=== PATIENT | female | born 1995 | race Caucasian/White ===

== ENCOUNTER → 2017-01-28 | Outpatient (REF) | LOC: WSOH 15:15 | DX: Z02.89 Encounter for other administrative examinations (principal) ==

== ENCOUNTER 2021-04-02 09:39 | Emergency (ER) | payer OTHER ==
[~2021-04-02] VITALS: Ht 165.1 cm; Wt 72.7 kg
[2021-04-02 09:56] VITALS: TEMP 98.8
[2021-04-02 10:32] LABS: BASO % 0.6 % (0.0-2.0); EOS % 0.4 % (0-4.0); GRAN % 56.3 % (42.2-75.2); HEMATOCRIT 38.1 % (37.0-47.0); HEMOGLOBIN 11.6 g/dl (12.5-16.0); LYMPH # 1.8 (1.2-3.4); LYMPH % 34.9 % (20.0-51.0); MEAN CELL VOLUME 76 fl (80.0-100.0); MEAN CORPUSCULAR HEMOGLOBIN 23 pg (27.0-31.0); MEAN CORPUSCULAR HGB CONC 30 g/dl (33.0-37.0); MEAN PLATELET VOLUME 10.5 fl (7.4-10.4); MONO # 0.4 (0.1-0.6); MONO % 7.6 % (1.7-9.3); PLATELET COUNT 269 K/mm3 (130-400); RED BLOOD COUNT 5.02 M/mm3 (4.10-5.30); REDCELL DISTRIBUTION WIDTH-CV 16.2 % (11.5-14.5)
[2021-04-02 10:35] LABS: ALANINE AMINOTRANSFERASE 15 U/L (4-34); ALBUMIN 4.6 gm/dL (3.5-5.0); ALKALINE PHOSPHATASE 87 U/L (50-136); ANION GAP 9 mmol/L (7-16); AST,SGOT 23 U/L (15-37); BILIRUBIN,TOTAL 0.9 mg/dL (0.0-1.0); BLOOD UREA NITROGEN 15 mg/dL (7-17); CALCIUM 9.9 mg/dL (8.4-10.2); CARBON DIOXIDE 23 mmol/L (22-30); CHLORIDE 106 mmol/L (98-107); CREATININE, serum 0.42 (0.52-1.25); GLUCOSE 302 mg/dL (74-106); POTASSIUM 3.8 mmol/L (3.4-5.0); SODIUM 138 mmol/L (137-145); TOTAL PROTEIN 8.4 gm/dL (6.4-8.2)
[2021-04-02 10:47] LABS: TROPONIN-I < 0.012 ng/mL (0.000-0.035)
[2021-04-02 11:07] LABS: COLLECTION METHOD CLEAN CATCH
[2021-04-02 11:16] LABS: PH 6 (5-8); SQUAMOUS EPITHELIAL 0-2 /hpf; URINE APPEARANCE Clear; URINE BACTERIA None Seen /hpf; URINE BILIRUBIN Negative (NEGATIVE); URINE BLOOD Negative (NEGATIVE); URINE COLOR Straw; URINE GLUCOSE 3+ (NEGATIVE); URINE KETONE 1+ (NEGATIVE); URINE LEUKOCYTE ESTERASE Negative (NEGATIVE); URINE NITRATE Negative (NEGATIVE); URINE PROTEIN(semi-quant) Negative (NEGATIVE); URINE RBC 0-2 /hpf; URINE UROBILINOGEN Negative (NEGATIVE)
[2021-04-02 11:50] VITALS: BP 131/90; PULSE 80
== END 2021-04-02 11:50 | disposition home or self-care (01) ==
LOC: COL.ER 09:39
PROVIDERS: Physician Assistant
DX: E11.9 Type 2 diabetes mellitus without complications (principal)
CPT/HCPCS: J7030